=== PATIENT | female | born 1980 | race Caucasian/White ===

== ENCOUNTER 2020-05-15 17:00 | Emergency (ER) | payer OTHER ==
[~2020-05-15] VITALS: Ht 175.3 cm; Wt 127.5 kg
[~2020-05-15 17:00] MED LIST: CEFADROXIL500 MG PO; ORASEP SPRAY30 ML MM
[2020-05-15] MEDS ORDERED: LISINOPRIL2.5 MG (17:06)
== END 2020-05-15 19:31 | disposition home or self-care (01) ==
LOC: ER 17:00
DX: M94.0 Chondrocostal junction syndrome [Tietze] (principal)

== ENCOUNTER 2020-11-17 20:46 | Emergency (ER) | payer OTHER ==
[~2020-11-17] VITALS: Ht 177.8 cm; Wt 127.0 kg
[~2020-11-17 20:46] MED LIST changes: +LISINOPRIL2.5 MG
[2020-11-17] MEDS ORDERED: ENALAPRIL MALEA10 MG PO (21:01)
[2020-11-17] MEDS ORDERED: NABUMETONE750 MG PO (23:52)
== END 2020-11-18 00:06 | disposition home or self-care (01) ==
LOC: ER 20:46
DX: R10.12 Left upper quadrant pain (principal)